=== PATIENT | female | born 1985 | race Two or more races ===

== ENCOUNTER 2019-02-15 07:03 | Emergency (ER) | payer MEDICAID ==
[~2019-02-15] VITALS: Ht 165.1 cm; Wt 54.4 kg
[2019-02-15 07:48] LABS: Hematocrit 40.8 % (36.0-46.0); Hemoglobin 13.4 g/dL (12.2-16.2); Mean Corpuscular Hemoglobin 29.8 pg (28.0-32.0); Mean Corpuscular Hgb Conc. 32.7 g/dL (32.0-36.0); Mean Corpuscular Volume 91.1 fL (80.0-100.0); Platelet Count (auto) 251 10^3/uL (140-450); Red Blood Cells 4.48 10^6/uL (4.0-5.20); Red Cell Distribution Width 13.3 % (11.8-14.3); White Blood Cell 6.2 10^3/uL (4.4-10.8)
[2019-02-15 07:52] LABS: Basophils % (manual) 0 (0.0-2.0); Blast Cells 0; Eosinophils % (manual) 0 (0-7); Metamyelocytes % 0; Myelocytes % 0; Promyelocytes % 0; Reactive Lymphocytes 0
[2019-02-15 08:03] LABS: Albumin 3.9 g/dL (3.4-5.0); Calcium 8.8 mg/dL (8.5-10.1); Potassium 3.8 mmol/L (3.5-5.1)
[2019-02-15 08:05] LABS: Bilirubin, Total 0.2 mg/dL (0.2-1.0); Total Protein 8.1 g/dL (6.4-8.2)
[2019-02-15 08:23] VITALS: BP 115/75
[2019-02-15 08:26] LABS: Urine Bacteria FEW /hpf (None Seen); Urine Blood Negative /uL (Negative); Urine Specific Gravity 1.008 (1.001-1.035); Urine WBC 1 /hpf (0 - 5)
[2019-02-15 09:04] LABS: Band Neutrophils % (manual) 2; Lymphocytes % (manual) 29 (10.0-50.0); Monocytes % (manual) 13 (0-12)
== END 2019-02-15 10:10 | disposition home or self-care (01) ==
LOC: ER 07:03
DX: R42 Dizziness and giddiness (principal); N93.9 Abnormal uterine and vaginal bleeding, unspecified
CPT/HCPCS: 36415; 70450; 80053; 81001; 81025; 85007; 85027

== ENCOUNTER 2020-07-04 08:21 | Emergency (ER) | payer MEDICAID ==
[~2020-07-04] VITALS: Ht 165.1 cm; Wt 57.6 kg
[2020-07-04 08:46] VITALS: BP 119/86
== END 2020-07-04 09:51 | disposition home or self-care (01) ==
LOC: ER 08:21
DX: G43.909 Migraine, unspecified, not intractable, without status migrainosus (principal); R42 Dizziness and giddiness; R53.1 Weakness
CPT/HCPCS: 70450